=== PATIENT | male | born 1945 | race Caucasian/White ===

== ENCOUNTER 2018-07-03 12:12 | Outpatient (CLI) | payer MEDICARE ==
[2018-07-03 13:45] LABS: #Eosinphils 0.1 thou/uL (0.0-0.7); #Lymphocytes 1.3 thou/uL (1.20-3.40); #Monocytes 0.3 thou/uL (0.11-0.59); #Neutrophils 3.2 thou/uL (1.40-6.50); %Basophils 0.6 % (0.0-1.0); %Eosinophils 1.8 % (0.0-10.0); %Monocytes 6.1 % (0.0-10.0); %Neutrophils 64.5 % (42.0-75.0); Hemoglobin 14.8 g/dL (14.0-18.0); Mean Corpuscular HGB CONC 31.9 g/dL (32.0-36.0); Mean Corpuscular Hemoglobin 30.6 pg (27.0-31.0); Mean Corpuscular Volume 95.9 fL (78.0-98.0); Mean Platelet Volume 8.9 fL (7.4-10.4); Platelet Count 142 thou/uL (130-400); RBC Distribution Width 12.3 % (11.5-14.5); Red Blood Cell (RBC) Count 4.82 mill/uL (4.70-6.10); White Blood Cell (WBC) Count 4.9 thou/uL (4.8-10.8)
[2018-07-03 13:50] LABS: PTT 29.5 SEC (22.9-36.1); Prothrombin Time 13.3 SEC (12.0-14.7)
[2018-07-03 14:07] LABS: ALT (SGPT) 21 U/L (8-55); AST (SGOT) 20 U/L (5-34); Albumin 4.6 g/dL (3.4-4.8); Alkaline Phosphatase 55 U/L (40-150); Anion Gap 13 mmol/L (10-20); BUN (Urea Nitrogen) 17 mg/dL (8.4-25.7); Bilirubin, Direct 0.6 mg/dL (0.1-0.3); Bilirubin, Total 1.3 mg/dL (0.2-1.2); Calc. Creatinine Clearance 0 mL/min (70-130); Carbon Dioxide 24 mmol/L (23-31); Cardiac Risk 2.6 (Less than 4.5); Chloride 107 mmol/L (98-107); Cholesterol 126 mg/dl (< 200 Desired); Estimated GFR-MDRD 65; Globulin 2.7 g/dL (2.4-3.5); Glucose 90 mg/dL (83-110); HDL Cholesterol 48 mg/dL (>60 Neg Risk); LDL Cholesterol, Calculated 70 mg/dL; Potassium 4.5 mmol/L (3.5-5.1); Protein, Total 7.3 g/dL (5.8-8.1); Sodium 139 mmol/L (136-145); Triglycerides 40 mg/dL (Less than 150)
== END 2018-07-03 12:13 | disposition home or self-care (01) ==
LOC: LABBT 12:12
PROVIDERS: ATTEND Internal Medicine Cardiovascular Disease
DX: Z01.812 Encounter for preprocedural laboratory examination (principal); R06.02 Shortness of breath
CPT/HCPCS: 80053; 80061; 80076; 85025; 85610; 85730

== ENCOUNTER 2018-07-04 05:47 | Day surgery (SDC) | payer MEDICARE ==
[2018-07-03 12:32] VITALS: BMI 25.5
[2018-07-04] MEDS ORDERED: Diazepam 5 MG TAB ONE (06:39)
[2018-07-04] MEDS ORDERED: Midazolam HCl 2 mg/2 ml Vial ONE (08:30)
[2018-07-04] MEDS ORDERED: Iopamidol 370 76% 100 ML VIAL ONE (08:56)
--- NOTE | 2018-07-04 19:10 | DIS ---
DATE OF ADMISSION: 07/04/2018 DATE OF DISCHARGE: 07/04/2018 DISCHARGE DIAGNOSES: 1. Coronary artery disease. 2. Hypertension. 3. Dyslipidemia. HISTORY: This is a pleasant 72-year-old gentleman with a history of coronary artery disease. Few years ago, the patient underwent PTCA and stent placement in the proximal LAD. The patient presented with increasing dyspnea. The patient denied having any chest discomfort. HOSPITAL COURSE: On 07/04/2018, the patient underwent a left heart catheterization and found to have normal left ventricular ejection fraction of 55% to 60%. The LAD had a 20% in-stent stenosis. There was a small first diagonal branch with a 70 % ostial stenosis and 90% mid stenosis. This was small vessel. Left circumflex artery is a large caliber vessel, is free of significant disease. The right coronary is a small nondominant vessel. The patient was felt to have only single-vessel coronary artery disease. Imdur will be added to his medical regimen. The patient is discharged in stable condition. DISCHARGE MEDICATIONS: 1. Aspirin 81 daily. 2. Lipitor 40 q.h.s. 3. Ramipril 10 daily. 4. Imdur 30 mg p.o. q.a.m. Job ID: [id number] [facility]
== END 2018-07-04 13:48 | disposition home or self-care (01) ==
LOC: CCL 05:47
PROVIDERS: ATTEND Internal Medicine Cardiovascular Disease
PROC: 4A023N7 Measurement of Cardiac Sampling and Pressure, Left Heart, Percutaneous Approach (ICD-10-PCS; principal; 2018-07-04)
DX: I25.10 Atherosclerotic heart disease of native coronary artery without angina pectoris (principal); E78.00 Pure hypercholesterolemia, unspecified; I10 Essential (primary) hypertension; E78.5 Hyperlipidemia, unspecified; K22.70 Barrett's esophagus without dysplasia; Z79.82 Long term (current) use of aspirin; Z79.899 Other long term (current) drug therapy; Z95.5 Presence of coronary angioplasty implant and graft
CPT/HCPCS: 93458; 99152; C1769; J1644; J2250; Q9967